=== PATIENT | male | born 1975 | race African-American/Black ===

== ENCOUNTER 2017-09-02 10:42 | Emergency (ER) | payer SELFPAY ==
[~2017-09-02] VITALS: Ht 193 cm; Wt 127.3 kg
[2017-09-02 10:50] VITALS: BP 119/80
== END 2017-09-02 11:48 | disposition left against medical advice (07) ==
LOC: EMS 10:44
DX: Z53.21 Procedure and treatment not carried out due to patient leaving prior to being seen by health care provider (principal)